=== PATIENT | female | born 1960 | race Hispanic/Latino ===

== ENCOUNTER 2021-12-31 12:02 | Emergency (ER) | payer MEDICARE ==
[~2021-12-31] VITALS: Ht 160 cm; Wt 55.3 kg
[2021-12-31] MEDS ORDERED: LEVOTHYROXINE88 MCG PO (12:47)
[2021-12-31] MEDS ORDERED: PANTOPRAZOLE SO40 MG PO (12:47)
[2021-12-31] MEDS ORDERED: PREDNISONE5 MG PO (12:47)
[2021-12-31] MEDS ORDERED: MAGNESIUM OXID400 MG PO (12:47)
[2021-12-31] MEDS ORDERED: DICLOFENAC SODI50 MG (12:47)
[2021-12-31] MEDS ORDERED: OMEPRAZOLE20 M1 (12:47)
[2021-12-31] MEDS ORDERED: ALENDRONATE SOD70 MG (12:47)
[2021-12-31] MEDS ORDERED: FOLIC ACID0.4 MG PO (12:47)
[2021-12-31] MEDS ORDERED: FERROUS SULFAT325 MG PO (12:47)
[2021-12-31] MEDS ORDERED: HYDROCODONE/APAP 5MG-325MG TAB PO ONE (13:30)
[2021-12-31] MEDS ORDERED: HYDROCODONE/APAP 5MG-325MG TAB ONE (13:51)
[2021-12-31] MEDS ORDERED: HYDROCODON-ACE1 EA11 PO (14:11)
== END 2021-12-31 15:34 | disposition home or self-care (01) ==
LOC: FSED 12:08
DX: S42.291A Other displaced fracture of upper end of right humerus, initial encounter for closed fracture (principal); R53.1 Weakness; W05.0XXA Fall from non-moving wheelchair, initial encounter; Y92.008 Other place in unspecified non-institutional (private) residence as the place of occurrence of the external cause; I10 Essential (primary) hypertension; E03.9 Hypothyroidism, unspecified; K21.9 Gastro-esophageal reflux disease without esophagitis; M54.9 Dorsalgia, unspecified; G89.29 Other chronic pain
CPT/HCPCS: 72125; 80053; 85025; 99284

== ENCOUNTER 2022-01-27 23:29 | Emergency (ER) | payer MEDICARE ==
[~2022-01-27] VITALS: Ht 160 cm; Wt 55.3 kg
[~2022-01-27 23:29] MED LIST: ALENDRONATE SOD70 MG; DICLOFENAC SODI50 MG; FERROUS SULFAT325 MG PO; FOLIC ACID0.4 MG PO; HYDROCODON-ACE1 EA11 PO; LEVOTHYROXINE88 MCG PO; MAGNESIUM OXID400 MG PO; OMEPRAZOLE20 M1; PANTOPRAZOLE SO40 MG PO; PREDNISONE5 MG PO
[2022-01-27] MEDS ORDERED: TRAMADOL HCL 50 MG TAB PO STA (23:37)
[2022-01-27] MEDS ORDERED: PREDNISONE 20 MG TAB PO STA (23:38)
[2022-01-28 01:22] VITALS: BP 129/73
== END 2022-01-28 01:45 | disposition home or self-care (01) ==
LOC: ER 23:37
DX: M79.671 Pain in right foot (principal); M06.9 Rheumatoid arthritis, unspecified; I10 Essential (primary) hypertension; E03.9 Hypothyroidism, unspecified; K21.9 Gastro-esophageal reflux disease without esophagitis; M54.9 Dorsalgia, unspecified; G89.29 Other chronic pain
CPT/HCPCS: 73630; 99283; J7512

== ENCOUNTER 2022-04-17 18:23 | Emergency (ER) | payer MEDICARE ==
[~2022-04-17] VITALS: Ht 160 cm; Wt 55.3 kg
== END 2022-04-17 18:41 | disposition home or self-care (01) ==
LOC: ER 18:30
DX: I10 Essential (primary) hypertension (principal); E03.9 Hypothyroidism, unspecified; K21.9 Gastro-esophageal reflux disease without esophagitis; M06.9 Rheumatoid arthritis, unspecified; M54.9 Dorsalgia, unspecified; G89.29 Other chronic pain
CPT/HCPCS: 99282

== ENCOUNTER 2023-05-07 16:41 | Inpatient (IN) | payer MEDICARE ==
[~2023-05-07] VITALS: Ht 154.9 cm; Wt 41.0 kg
[2023-05-07 18:20] LABS: BASOPHILS # (AUTO) 0.1 (0.0-0.1); BASOPHILS % 0.7 % (0.0-1.0); EOSINOPHILS # (AUTO) 0.2 (0.0-0.4); EOSINOPHILS % 3.4 % (0.0-6.0); HEMOGLOBIN 7.5 g/dL (12.0-16.0); LYMPHOCYTES # (AUTO) 1.3 (1.0-3.2); LYMPHOCYTES % 19.4 % (18.0-39.1); MEAN CORPUSCULAR HEMOGLOBIN 31.6 pg (28-32); MEAN CORPUSCULAR HGB CONC 33.5 g/dL (31-35); MEAN CORPUSCULAR VOLUME 94.5 fL (81-99); MONOCYTES # (AUTO) 0.8 (0.2-0.8); MONOCYTES % 12.1 % (4.4-11.3); NEUTROPHILS # (AUTO) 4.3 (2.1-6.9); NEUTROPHILS % 64.1 % (38.7-80.0); PLATELET COUNT 194 x10e3/uL (140-360); RED BLOOD COUNT 2.37 x10e6/uL (3.6-5.1); RED CELL DISTRIBUTION WIDTH 14.8 % (11.7-14.4)
[2023-05-07 18:23] LABS: HEMATOCRIT 22.4 % (34.2-44.1)
[2023-05-07] MEDS ORDERED: Vancomycin IV 1 GM in SODIUM CHLORIDE 0.9% 250ML 250 ML IV ONE (18:30)
[2023-05-07 18:43] LABS: ALBUMIN 3.1 g/dL (3.5-5.0); ANION GAP 14.1 mmol/L (8-16); CALCIUM 8.4 mg/dL (8.4-10.2); CREATININE, SERUM 0.5 mg/dL (0.57-1.11); POTASSIUM 4.1 mmol/L (3.5-5.1)
[2023-05-07] MEDS ORDERED: ONDANSETRON HCL INJ 2MG/ML 2ML 2 MG/ML VIAL IV PRN (19:45)
[2023-05-07] MEDS: SODIUM CHLORIDE 0.9% 1000ML 1,000 ML IV SCH (19:45)
[2023-05-07] MEDS: ACETAMINOPHEN 325 MG TAB PO PRN (22:08)
[2023-05-07 22:41] VITALS: BP 165/77; PULSE 86; RESP 16; TEMP 97.7; O2SAT 99
[2023-05-07 22:50] VITALS: BP 165/77; PULSE 86; RESP 16; TEMP 97.7; O2SAT 99
[2023-05-08] VITALS (7 sets, daily range): BP systolic 139–163; BP diastolic 66–86; PULSE 77–92; RESP 16–18; TEMP 97.5–98.9; O2SAT 98–100
[2023-05-08] MEDS ORDERED: FORTEO2.4 ML IM (04:52)
[2023-05-08] MEDS ORDERED: NIFEDIAC CC60 MG PO (04:52)
[2023-05-08] MEDS ORDERED: OMNICAP TABLET0.4 MG PO (04:52)
[2023-05-08] MEDS ORDERED: LEVOTHYROXINE100 MCG PO (04:52)
[2023-05-08] MEDS ORDERED: LEFLUNOMIDE20 MG PO (04:52)
[2023-05-08] MEDS ORDERED: HYDRALAZINE HCL10 MG PO (04:52)
[2023-05-08] MEDS ORDERED: PREDNISONE1 MG PO (04:52)
[2023-05-08] MEDS ORDERED: PRAVASTATIN SOD20 MG PO (04:52)
[2023-05-08 06:11] LABS: BASOPHILS % 0.6 % (0.0-1.0); EOSINOPHILS # (AUTO) 0.2 (0.0-0.4); EOSINOPHILS % 4.3 % (0.0-6.0); HEMOGLOBIN 7.1 g/dL (12.0-16.0); LYMPHOCYTES # (AUTO) 1.3 (1.0-3.2); MEAN CORPUSCULAR HEMOGLOBIN 31.7 pg (28-32); MEAN CORPUSCULAR HGB CONC 33.6 g/dL (31-35); MEAN CORPUSCULAR VOLUME 94.2 fL (81-99); MONOCYTES # (AUTO) 0.7 (0.2-0.8); MONOCYTES % 13.8 % (4.4-11.3); NEUTROPHILS # (AUTO) 2.9 (2.1-6.9); NEUTROPHILS % 56.1 % (38.7-80.0); PLATELET COUNT 208 x10e3/uL (140-360); RED BLOOD COUNT 2.24 x10e6/uL (3.6-5.1); RED CELL DISTRIBUTION WIDTH 14.8 % (11.7-14.4)
[2023-05-08 06:36] LABS: ALBUMIN 2.8 g/dL (3.5-5.0); ALBUMIN/GLOBULIN RATIO 1.2 (0.8-2.0); ANION GAP 11.3 mmol/L (8-16); CALCIUM 8.1 mg/dL (8.4-10.2); CREATININE, SERUM 0.48 mg/dL (0.57-1.11); POTASSIUM 4.3 mmol/L (3.5-5.1)
[2023-05-08 06:40] LABS: HEMATOCRIT 21.1 % (34.2-44.1)
[2023-05-08] MEDS: ACETAMINOPHEN 325 MG TAB PO PRN ×3 (08:26→21:32)
[2023-05-08 09:30] LABS: CHOL/HDL RATIO 4.5 (3.0-3.6)
[2023-05-08 09:50] LABS: FERRITIN 932.23 ng/mL (4.63-204.00)
[2023-05-08] MEDS: PANTOPRAZOLE SOD 40 MG TABEC PO SCH (11:07)
[2023-05-08] MEDS: FERROUS SULFATE 325 MG TAB PO SCH (11:07)
[2023-05-08] MEDS: FOLIC ACID 1 MG TAB PO SCH (11:07)
[2023-05-08] MEDS: SODIUM CHLORIDE 0.9% 1000ML 1,000 ML IV SCH (11:09)
[2023-05-08] MEDS ORDERED: medihoney TOP (11:17)
[2023-05-08] MEDS: ENOXAPARIN SOD INJ 40 MG/0.4 ML SYR SC SCH (16:24)
[2023-05-09] VITALS (8 sets, daily range): BP systolic 139–147; BP diastolic 72–86; PULSE 70–84; RESP 16–22; TEMP 97.5–98.7; O2SAT 77–100
[2023-05-09 05:24] LABS: BASOPHILS % 0.6 % (0.0-1.0); EOSINOPHILS # (AUTO) 0.2 (0.0-0.4); HEMOGLOBIN 6.7 g/dL (12.0-16.0); MEAN CORPUSCULAR HEMOGLOBIN 31.8 pg (28-32); MEAN CORPUSCULAR HGB CONC 33.2 g/dL (31-35); MEAN CORPUSCULAR VOLUME 95.7 fL (81-99); MONOCYTES # (AUTO) 0.6 (0.2-0.8); MONOCYTES % 12.8 % (4.4-11.3); NEUTROPHILS # (AUTO) 3.1 (2.1-6.9); NEUTROPHILS % 62.4 % (38.7-80.0); PLATELET COUNT 205 x10e3/uL (140-360); RED BLOOD COUNT 2.11 x10e6/uL (3.6-5.1); RED CELL DISTRIBUTION WIDTH 14.7 % (11.7-14.4)
[2023-05-09] MEDS: LEVOTHYROXINE SODIUM 100 MCG TAB PO SCH (05:36)
[2023-05-09] MEDS: SODIUM CHLORIDE 0.9% 1000ML 1,000 ML IV SCH ×2 (05:36→11:45)
[2023-05-09 05:38] LABS: HEMATOCRIT 20.2 % (34.2-44.1)
[2023-05-09 05:49] LABS: ALBUMIN 2.5 g/dL (3.5-5.0); ALBUMIN/GLOBULIN RATIO 1.1 (0.8-2.0); ANION GAP 12.6 mmol/L (8-16); CALCIUM 7.8 mg/dL (8.4-10.2); CREATININE, SERUM 0.47 mg/dL (0.57-1.11); POTASSIUM 3.6 mmol/L (3.5-5.1)
[2023-05-09] MEDS ORDERED: SODIUM CHLORIDE 0.9% 250ML 250 ML IV ONE (06:45)
[2023-05-09] MEDS: PANTOPRAZOLE SOD 40 MG TABEC PO SCH (08:36)
[2023-05-09] MEDS: FOLIC ACID 1 MG TAB PO SCH (08:36)
[2023-05-09] MEDS: FERROUS SULFATE 325 MG TAB PO SCH (08:36)
[2023-05-09] MEDS: PREDNISONE 5 MG/5 ML SOLN PO SCH (08:37)
[2023-05-09] MEDS: ACETAMINOPHEN 325 MG TAB PO PRN ×3 (08:37→17:58)
[2023-05-09] MEDS ORDERED: NON-FORMULARY MEDICATION (Folic Acid* 0.4 MG) PO SCH (09:00)
[2023-05-09] MEDS ORDERED: PREDNISONE 2 MG PO SCH (09:00)
[2023-05-09] MEDS ORDERED: ONDANSETRON HCL 4 MG ORAL DISINTEGRATING TAB PO PRN (09:45)
[2023-05-09] MEDS ORDERED: MEROPENEM 1 GM in SODIUM CHLORIDE 0.9% 100 ML IV SCH (14:00)
[2023-05-09] MEDS: ENOXAPARIN SOD INJ 40 MG/0.4 ML SYR SC SCH (16:24)
[2023-05-09] MEDS ORDERED: SODIUM CHLORIDE 0.9% 250ML 250 ML ONE (17:25)
[2023-05-09] MEDS: Vancomycin IV 1 GM in SODIUM CHLORIDE 0.9% 250ML 250 ML IV SCH (20:56)
[2023-05-10] VITALS: BP 137/60; PULSE 79; RESP 18; TEMP 98; O2SAT 97
[2023-05-10] MEDS ORDERED: SODIUM CHLORIDE 0.9% 250ML 250 ML ONE (00:52)
[2023-05-10] MEDS: SODIUM CHLORIDE 0.9% 1000ML 1,000 ML IV SCH (02:00)
[2023-05-10] MEDS: LEVOTHYROXINE SODIUM 100 MCG TAB PO SCH (05:32)
[2023-05-10 06:56] LABS: HEMOGLOBIN 11.1 g/dL (12.0-16.0)
[2023-05-10 08:22] VITALS: BP 158/85; PULSE 80; RESP 22; TEMP 98.3; O2SAT 95
[2023-05-10 08:44] VITALS: BP 158/85; PULSE 80; RESP 22; TEMP 98.3; O2SAT 95
[2023-05-10] MEDS ORDERED: BALSAM PERU/CASTOR OIL 60 GM OINT...G. TP SCH (09:00)
[2023-05-10] MEDS: FOLIC ACID 1 MG TAB PO SCH (09:04)
[2023-05-10] MEDS: PANTOPRAZOLE SOD 40 MG TABEC PO SCH (09:04)
[2023-05-10] MEDS: PREDNISONE 5 MG/5 ML SOLN PO SCH (09:04)
[2023-05-10] MEDS: FERROUS SULFATE 325 MG TAB PO SCH (09:04)
[2023-05-10] MEDS: Vancomycin IV 1 GM in SODIUM CHLORIDE 0.9% 250ML 250 ML IV SCH (09:05)
[2023-05-10 11:48] VITALS: BP 152/90; PULSE 85; RESP 22; TEMP 97.5; O2SAT 100
[2023-05-10 13:43] LABS: ANION GAP 11.8 mmol/L (8-16); CALCIUM 8.4 mg/dL (8.4-10.2); CREATININE, SERUM 0.49 mg/dL (0.57-1.11); POTASSIUM 3.8 mmol/L (3.5-5.1)
[2023-05-10 16:53] VITALS: BP 159/88; PULSE 73; RESP 22; TEMP 98.1; O2SAT 97
[2023-05-10] MEDS: ENOXAPARIN SOD INJ 40 MG/0.4 ML SYR SC SCH (17:01)
[2023-05-10] MEDS ORDERED: VENELEX OINTMEN60 GM TP (17:29)
[2023-05-11] MEDS ORDERED: ASPIRIN 81 MG ENTERIC COATED PO SCH (09:00)
== END 2023-05-10 18:45 | DRG 602 ==
LOC: ER 16:52 → ERHOLD 19:37 → MED/SURG3 21:20
PROVIDERS: ADMIT Internal Medicine; ATTEND Internal Medicine
PROC: 02HV33Z Insertion of Infusion Device into Superior Vena Cava, Percutaneous Approach (ICD-10-PCS; principal; 2023-05-09)
PROC: B548ZZA Ultrasonography of Superior Vena Cava, Guidance (ICD-10-PCS; 2023-05-09)
DX: L03.032 Cellulitis of left toe (principal); L89.894 Pressure ulcer of other site, stage 4; E11.52 Type 2 diabetes mellitus with diabetic peripheral angiopathy with gangrene; E87.1 Hypo-osmolality and hyponatremia; K21.9 Gastro-esophageal reflux disease without esophagitis; M06.9 Rheumatoid arthritis, unspecified; E03.9 Hypothyroidism, unspecified; D64.9 Anemia, unspecified; E78.5 Hyperlipidemia, unspecified; R53.81 Other malaise; I10 Essential (primary) hypertension; M54.9 Dorsalgia, unspecified; D63.8 Anemia in other chronic diseases classified elsewhere; M81.0 Age-related osteoporosis without current pathological fracture; G89.29 Other chronic pain; Z96.642 Presence of left artificial hip joint; Z99.3 Dependence on wheelchair; Z98.1 Arthrodesis status; Z79.890 Hormone replacement therapy; Z79.899 Other long term (current) drug therapy
CPT/HCPCS: 0223U; 36415; 36569; 71045; 80048; 80053; 80061; 80202; 82607; 82728; 82948; 83036; 83540; 83605; 84134; 84466; 85014; 85018; 85025; 86850; 86870; 86880; 86900; 86905; 86920; 86922; 87040; 93925; 96361; 99001; 99252; 99284; J0692; J1650; J2185; J2543; J7030; J7050; P9016